=== PATIENT | male | born 1995 | race Asian ===

== ENCOUNTER 2022-02-06 20:15 | Emergency (ER) | payer OTHER ==
[~2022-02-06] VITALS: Ht 180.3 cm; Wt 113.4 kg
--- NOTE | 2022-02-06 20:30 | NUR ---
[id number] C/O RIGHT KNEE PAIN. "PANTS GOT CAUGHT TO TABLE TWISTED RIGHT KNEE". DEFORMITY NOTED TO RLE WITH PAIN.PT AWAKE AND ALERT X4 BREATHING EVEN AND UNLABORED.
[2022-02-06] MEDS ORDERED: KETOROLAC TROMETHAMINE INJ 30 MG/ML VIAL ONE (20:40)
--- NOTE | 2022-02-06 20:40 | NUR ---
SALOMÓN MACHADO AT BEDSIDE FOR PATELLAR REDUCTION
[2022-02-06] MEDS ORDERED: KETOROLAC TROMETHAMINE INJ 60 MG/2 ML VIAL IM ONE (21:00)
--- NOTE | 2022-02-06 22:04 | NUR ---
Patient discharged to home in stable condition. Written and verbal after care instructions given. Patient verbalizes understanding of instruction.
[2022-02-06 22:49] VITALS: BP 144/82
== END 2022-02-06 22:05 | disposition home or self-care (01) ==
LOC: ER 20:25
DX: S83.004A Unspecified dislocation of right patella, initial encounter (principal); M25.561 Pain in right knee; X50.1XXA Overexertion from prolonged static or awkward postures, initial encounter; Y93.89 Activity, other specified; Y92.89 Other specified places as the place of occurrence of the external cause; Y99.8 Other external cause status
CPT/HCPCS: 27560; 73564; 96372; 99284; J1885